=== PATIENT | female | born 1965 | race Caucasian/White ===

== ENCOUNTER 2016-08-30 18:22 | Inpatient (IN) | payer OTHER ==
[2016-08-30] MEDS ORDERED: levETIRAcetam IV* 500 MG in NS 0.9% 100 ML* 100 ML IVPB ONE (18:47)
[2016-08-30 19:00] LABS: Hematocrit 35 % (35-47); Hemoglobin 10.9 g/dl (12.0-16.0); Mean Corpuscular HGB Conc 31 g/dl (31-36); Mean Corpuscular Hemoglobin 27 pg (27-31); Mean Corpuscular Volume 88 fL (80-97); Mean Platelet Volume 7 um3 (7.4-10.4); Red Cell Distribution Width 15 % (10.5-15); White Blood Count 11.6 10^3/ul (3.5-10.8)
[2016-08-30 19:03] LABS: Add Diff/Slide Review? Slide Review Added; Comments Flag Yes
[2016-08-30 19:11] LABS: Albumin 4.2 g/dL (3.2-5.2); BUN/Creatinine Ratio 20.3 (8-20); Calcium 9.2 mg/dL (8.6-10.3); EGFR African American 105.6 (>60); EGFR Non-African American 82.1 (>60); Globulin 3.4 g/dL (2-4); Magnesium 2.3 mg/dL (1.9-2.7); Potassium 3.5 mmol/L (3.5-5.0); Total Bilirubin 0.3 mg/dL (0.2-1.0); Total Protein 7.6 g/dL (6.4-8.9)
[2016-08-30] MEDS ORDERED: LORazepam INJ* 2 MG/ML 1 ML VIAL ONE (20:05)
[2016-08-30] MEDS ORDERED: NS 0.9% 1000 ML* 1,000 ML IV ONE (20:10)
[2016-08-30] MEDS ORDERED: LORazepam INJ* 2 MG/ML 1 ML VIAL IV PUSH ONE (20:11)
[2016-08-30] MEDS ORDERED: Ondansetron INJ* 2 MG/ML VIAL IV PRN (20:35)
[2016-08-30] MEDS ORDERED: Melatonin (NF) 3 MG TAB PO PRN (20:35)
[2016-08-30] MEDS ORDERED: Albuterol 2.5 MG/3 ML NEB.SOL* (0.083%) INH PRN (20:35)
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
--- NOTE | 2016-08-30 20:52 | RAD ---
HISTORY: New onset seizure, history of brain injury COMPARISONS: December 16, 2015 TECHNIQUE: Multiple contiguous axial CT scans were obtained of the head without intravenous contrast. FINDINGS: HEMORRHAGE/INFARCT: There is no hemorrhage or acute infarct. MASSES/SHIFT: There is no mass or shift. EXTRA-AXIAL SPACES: There are no extra-axial fluid collections. SULCI AND VENTRICLES: There is diffuse enlargement of the sulci and ventricles. The degree of ventriculomegaly somewhat disproportionate to the degree of sulcal volume loss. CEREBRUM: There is a chronic lacunar infarct of the right basal ganglia. There is mild hypoattenuation of the periventricular and subcortical white matter. BRAINSTEM: There are no focal parenchymal abnormalities. CEREBELLUM: There are no focal parenchymal abnormalities. VESSELS: The vessels are grossly normal. PARANASAL SINUSES: The paranasal sinuses are clear. ORBITS: The orbits are unremarkable. BONES AND SOFT TISSUE: No bone or soft tissue abnormalities are noted. OTHER: None IMPRESSION: 1. NO ACUTE INTRACRANIAL PATHOLOGY. 2. VENTRICULOMEGALY THAT IS SOMEWHAT DISPROPORTIONATE TO DEGREE OF SULCAL VOLUME LOSS WHICH MAY REFLECT THE PRESENCE OF A COMMUNICATING HYDROCEPHALUS, INCLUDING NORMAL PRESSURE HYDROCEPHALUS. 3. MILD CHRONIC SMALL VESSEL ISCHEMIC CHANGES
[2016-08-30] MEDS ORDERED: levETIRAcetam 500 MG IVPREMIX* 500 MG/100 ML BAG IV ONE (21:00)
[2016-08-30] MEDS ORDERED: Midazolam* 1 MG/ML 2 ML VIAL (2 MG) IV SLOW PU ONE (21:46)
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
[2016-08-30] MEDS: NS 0.9% 1000 ML* 1,000 ML IV SCH (23:49)
[2016-08-31] MEDS: Docusate CAP* 100 MG PO SCH ×3 (00:16→21:37)
[2016-08-31] MEDS: Baclofen TAB* 10 MG PO SCH ×5 (00:16→21:36)
[2016-08-31] MEDS: Sertraline* 50 MG TAB PO SCH ×2 (00:17→21:35)
[2016-08-31] MEDS: tiZANidine TAB* 2 MG PO SCH ×3 (00:19→21:36)
[2016-08-31] MEDS: Acetaminophen TAB* 325 MG PO PRN ×2 (00:25→09:24)
[2016-08-31 00:32] LABS: Urine Bilirubin Negative (Negative); Urine Glucose Negative (Negative); Urine Nitrite Negative (Negative)
[2016-08-31] MEDS: levETIRAcetam 500 MG IVPREMIX* 500 MG/100 ML BAG IV SCH ×3 (04:57→19:49)
[2016-08-31] MEDS: Omeprazole CAP* 20 MG PO SCH (05:07)
[2016-08-31 06:17] LABS: Hematocrit 31 % (35-47); Hemoglobin 10.2 g/dl (12.0-16.0); Mean Corpuscular HGB Conc 33 g/dl (31-36); Mean Corpuscular Hemoglobin 28 pg (27-31); Mean Corpuscular Volume 84 fL (80-97); Mean Platelet Volume 8 um3 (7.4-10.4); Red Cell Distribution Width 15 % (10.5-15); White Blood Count 7.5 10^3/ul (3.5-10.8)
[2016-08-31 06:28] LABS: Calcium 8.9 mg/dL (8.6-10.3); EGFR African American 155.2 (>60); EGFR Non-African American 120.7 (>60); Potassium 4.1 mmol/L (3.5-5.0)
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
[2016-08-31] MEDS: Sertraline* 100 MG TAB PO SCH (09:24)
[2016-08-31] MEDS: NS 0.9% 1000 ML* 1,000 ML IV SCH (10:04)
--- NOTE | 2016-08-31 11:32 | PN ---
Progress Note - Progress Note SOAP: Neurology progress note Date of service: 08/31/16 Subjective: Patient had no further seizure after her 4th one in the ED around 20:30. She is feeling better today overall, but still has spasm in the right foot. Objective: Current Medications Acetaminophen (Tylenol Tab*) 650 mg PO Q6H PRN PRN Reason: FEVER/PAIN Last Admin: 08/31/16 09:24 Dose: 650 mg Albuterol (Ventolin 2.5 Mg/3 Ml Neb.Marleen*) 2.5 mg INH Q2H PRN PRN Reason: SOB/WHEEZING Amantadine HCl (Symmetrel Cap*) 100 mg PO BID MEGAN Baclofen (Lioresal Tab*) 20 mg PO Q6H MEGAN Last Admin: 08/31/16 09:27 Dose: 20 mg Docusate Sodium (Colace Cap*) 200 mg PO BID [facility] Last Admin: 08/31/16 09:24 Dose: 200 mg Levetiracetam (Keppra Iv Premix*) 500 mg in 100 mls @ 400 mls/hr IV Q8H MEGAN Last Admin: 08/31/16 04:57 Dose: 400 mls/hr Sodium Chloride (Ns 0.9% 1000 Ml*) 1,000 mls @ 100 mls/hr IV PER RATE [facility] Last Admin: 08/31/16 10:04 Dose: 100 mls/hr Melatonin (Melatonin (Nf)) 3 mg PO BEDTIME PRN; Protocol PRN Reason: Sleep Omeprazole (Prilosec Cap*) 20 mg PO DAILY@0600 [facility] Last Admin: 08/31/16 05:07 Dose: 20 mg Ondansetron HCl (Zofran Inj*) 4 mg IV Q6H PRN PRN Reason: NAUSEA Last Admin: 08/31/16 00:34 Dose: 4 mg Sertraline HCl (Zoloft*) 50 mg PO BEDTIME [facility] Last Admin: 08/31/16 00:17 Dose: 50 mg Sertraline HCl (Zoloft*) 100 mg PO QAM [facility] Last Admin: 08/31/16 09:24 Dose: 100 mg Tizanidine HCl (Zanaflex Tab*) 2 mg PO QAM [facility] Last Admin: 08/31/16 09:24 Dose: 2 mg Tizanidine HCl (Zanaflex Tab*) 8 mg PO BEDTIME [facility] Last Admin: 08/31/16 00:19 Dose: 8 mg Vital Signs Temp Pulse Resp BP Pulse Ox 98.6 F 65 99 143/61 99 08/31/16 08:00 08/31/16 10:00 08/31/16 10:30 08/31/16 10:00 08/31/16 10:00 Laboratory Results - last 24 hr 08/30/16 08/30/16 08/30/16 18:10 18:10 18:10 WBC 11.6 H RBC 4.00 Hgb 10.9 L Hct 35 MCV 88 MCH 27 MCHC 31 RDW 15 Plt Count 456 H D MPV 7 L Neut % (Auto) 85.1 H Lymph % (Auto) 5.9 L [place] % (Auto) 6.6 Eos % (Auto) 0.1 Baso % (Auto) 2.3 H Absolute Neuts (auto) 9.9 H Absolute Lymphs (auto) 0.7 L Absolute Monos (auto) 0.8 Absolute Eos (auto) 0 Absolute Basos (auto) 0.3 H Absolute Nucleated RBC 0 Nucleated RBC % 0 INR (Anticoag Therapy) 0.99 Sodium 135 Potassium 3.5 Chloride 98 L Carbon Dioxide 14 L* Anion Gap 23 H BUN 15 Creatinine 0.74 Est GFR ( Amer) 105.6 Est GFR (Non-Af Amer) 82.1 BUN/Creatinine Ratio 20.3 H Glucose 113 H POC Glucose (mg/dL) Lactic Acid Calcium 9.2 Magnesium 2.3 Total Bilirubin 0.30 AST 25 ALT 37 Alkaline Phosphatase 121 H Total Protein 7.6 Albumin 4.2 Globulin 3.4 Albumin/Globulin Ratio 1.2 Urine Color Urine Appearance Urine pH Ur Specific [place] Urine Protein Urine Ketones Urine Blood Urine Nitrate Urine Bilirubin Urine Urobilinogen Ur Leukocyte Esterase Urine Glucose 08/30/16 08/31/16 08/31/16 18:10 00:05 00:35 WBC RBC Hgb Hct MCV MCH MCHC RDW Plt Count MPV Neut % (Auto) Lymph % (Auto) [place] % (Auto) Eos % (Auto) Baso % (Auto) Absolute Neuts (auto) Absolute Lymphs (auto) Absolute Monos (auto) Absolute Eos (auto) Absolute Basos (auto) Absolute Nucleated RBC Nucleated RBC % INR (Anticoag Therapy) Sodium Potassium Chloride Carbon Dioxide Anion Gap BUN Creatinine Est GFR ( Amer) Est GFR (Non-Af Amer) BUN/Creatinine Ratio Glucose POC Glucose (mg/dL) Lactic Acid 12.1 H* 1.4 Calcium Magnesium Total Bilirubin AST ALT Alkaline Phosphatase Total Protein Albumin Globulin Albumin/Globulin Ratio Urine Color Straw Urine Appearance Clear Urine pH 7.0 Ur Specific [place] 1.004 L Urine Protein Negative Urine Ketones Negative Urine Blood Negative Urine Nitrate Negative Urine Bilirubin Negative Urine Urobilinogen Negative Ur Leukocyte Esterase Negative Urine Glucose Negative 08/31/16 08/31/16 08/31/16 01:23 05:25 05:25 WBC 7.5 RBC 3.70 L Hgb 10.2 L Hct 31 L MCV 84 MCH 28 MCHC 33 RDW 15 Plt Count 373 MPV 8 Neut % (Auto) Lymph % (Auto) [place] % (Auto) Eos % (Auto) Baso % (Auto) Absolute Neuts (auto) Absolute Lymphs (auto) Absolute Monos (auto) Absolute Eos (auto) Absolute Basos (auto) Absolute Nucleated RBC Nucleated RBC % INR (Anticoag Therapy) Sodium 137 Potassium 4.1 Chloride 105 Carbon Dioxide 27 Anion Gap 5 BUN 9 Creatinine 0.53 Est GFR ( Amer) 155.2 Est GFR (Non-Af Amer) 120.7 BUN/Creatinine Ratio 17.0 Glucose 97 POC Glucose (mg/dL) 133 H Lactic Acid Calcium 8.9 Magnesium Total Bilirubin AST ALT Alkaline Phosphatase Total Protein Albumin Globulin Albumin/Globulin Ratio Urine Color Urine Appearance Urine pH Ur Specific [place] Urine Protein Urine Ketones Urine Blood Urine Nitrate Urine Bilirubin Urine Urobilinogen Ur Leukocyte Esterase Urine Glucose On exam she is awake, alert and oriented. Pupils are still 4 mm and reactive. She is not tachycardic any more. Cranial nerves seem intact. Strength is 5/5 throughout other than the limitation she has with left hip flexor. Sensory exam is intact. I reviewed her EEG and is within the range of normal. Assessment and Plan: 51-year-old female with history of hypoxic injuary about 15 months ago, now presented with a new onset seizure. She does have risk factors for seizure, however seems these seizures have been in the setting of benzo withdrawal, along with other contributing factors such as dehydration and sleep deprivation. Recommend to restart her on a low dose of benzo, preferably short acting similar to what she was on before (Ativan) with gradual taper at least over a few years. Still recommend to stay on antiepilpetic meds (Keppra) for at least 6 months and then reassess again the risk and benefit. Currently in the hospital she is on 500 mg q8h, but can be changed to bid (500 or 750 mg bid) upon discharge. MRI will be obtained in the setting of new onset seizure.
[2016-08-31] MEDS: Amantadine CAP* 100 MG PO SCH ×2 (11:44→21:35)
--- NOTE | 2016-08-31 16:03 | RAD ---
HISTORY: Seizure COMPARISONS: June 08, 2016, CT dated September 11, 2016 TECHNIQUE: The following sequences were obtained of the head: Sagittal T1-weighted images, axial T2-weighted images, axial FLAIR images, axial susceptibility weighted images, axial T1-weighted images, coronal T1, T2 and FLAIR images through the mesial temporal lobes. Additionally, axial diffusion-weighted images were obtained with calculated apparent diffusion coefficients. FINDINGS: HEMORRHAGE/INFARCT: There is no hemorrhage or acute infarct. MASSES/SHIFT: There is no mass or shift. EXTRA-AXIAL SPACES/MENINGES: There are no extra-axial fluid collections. SULCI AND VENTRICLES: There is diffuse and proportional enlargement of the sulci and ventricles. There is ex vacuo dilatation of the temporal horn of the right lateral ventricle. This is stable from the previous examination and appears to account for the ventriculomegaly noted on CT from August 30, 2016 CEREBRUM: There is elevated T2/FLAIR signal within the periventricular white matter, most consistent with. There is right posterior temporal encephalomalacia. The mesial temporal lobes are symmetric. There is no appreciable cortical dysplasia or heterotopia BRAINSTEM: There are no focal parenchymal abnormalities. CEREBELLUM: There are no focal parenchymal abnormalities. The cerebellar tonsils are normal in size and position. SELLA: The sella is normal. PINEAL: The pineal region is clear. CP ANGLE/TEMPORAL BONES: The labyrinthine structures are grossly normal. VESSELS: Normal flow-voids are noted within the visualized vertebral vasculature. DIFFUSION ABNORMALITIES: There are no diffusion abnormalities. PARANASAL SINUSES/MASTOIDS: The paranasal sinuses are clear. ORBITS: The orbits are unremarkable. BONES AND SOFT TISSUE: No bone or soft tissue abnormalities are noted. OTHER: None IMPRESSION: 1. STABLE RIGHT TEMPORAL ENCEPHALOMALACIA WITH EX VACUO DILATATION OF THE RIGHT LATERAL VENTRICLE. 2. THE MESIAL TEMPORAL LOBES ARE SYMMETRIC. THERE IS NO APPRECIABLE CORTICAL DYSPLASIA OR HETEROTOPIA.
[2016-09-01] MEDS: NS 0.9% 1000 ML* 1,000 ML IV SCH (00:49)
[2016-09-01] MEDS: Baclofen TAB* 10 MG PO SCH ×4 (03:58→22:35)
[2016-09-01] MEDS: levETIRAcetam 500 MG IVPREMIX* 500 MG/100 ML BAG IV SCH ×2 (03:58→12:05)
--- NOTE | 2016-09-01 04:31 | EEG ---
CC: Dr. Abdoul Perez ELECTROENCEPHALOGRAPHY REPORT: DATE OF STUDY: 08/31/16 REQUESTING PHYSICIAN: Dr. Manzo. REASON FOR REQUEST: New onset seizure. BRIEF HISTORY: The patient is a 51-year-old female with a history of anoxic brain injury in October 2014 and a resultant muscle spasm, who presented to the hospital with new onset seizure that happened 4 times within a span of about 3 hours, with return to the baseline in between. TECHNICAL DESCRIPTION: This digital EEG was recorded using 21 scalp and ear, and 2 EKG electrodes. It was reviewed in referential and bipolar montages following reformatting in the 10-20 international electrode placement system. In the most awake and alert state, the posterior dominant rhythm consists of 20- 40 microvolts, 10-11 Hz posterior dominant rhythm that reacts to eye opening. Faster frequencies including a 5-10 Hz, 18-22 Hz activities seen in the frontal leads. During drowsiness, there is increased emergence of theta and delta rhythms in a generalized distribution; however, no full sleep was achieved during this study. IMPRESSION: This digital EEG in the awake and drowsy states is within the range of normal variation. COMMENT: Lack of epileptiform discharges does not necessarily exclude the clinical diagnosis of epilepsy. [id number]/[facility] #: [id number] [facility] HOSPITALMauro
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
[2016-09-01] MEDS: Omeprazole CAP* 20 MG PO SCH (08:16)
[2016-09-01] MEDS ORDERED: Albuterol HFA INHALER* 8 gm MDI INH PRN (08:56)
[2016-09-01] MEDS: Sertraline* 100 MG TAB PO SCH (09:46)
[2016-09-01] MEDS: Amantadine CAP* 100 MG PO SCH ×2 (09:46→22:34)
[2016-09-01] MEDS: tiZANidine TAB* 2 MG PO SCH ×2 (09:47→22:34)
[2016-09-01] MEDS: Docusate CAP* 100 MG PO SCH ×3 (11:58→22:37)
[2016-09-01] MEDS: clonazePAM TAB(*) 0.5 MG PO SCH (22:33)
[2016-09-01] MEDS: Sertraline* 50 MG TAB PO SCH (22:35)
[2016-09-02] MEDS: levETIRAcetam 500 MG IVPREMIX* 500 MG/100 ML BAG IV SCH (00:03)
[2016-09-02] MEDS: Baclofen TAB* 10 MG PO SCH ×2 (04:28→08:35)
[2016-09-02] MEDS: Omeprazole CAP* 20 MG PO SCH (06:15)
[2016-09-02] MEDS ORDERED: levETIRAcetam 500 MG IVPREMIX* 500 MG/100 ML BAG IV SCH (08:00)
[2016-09-02] MEDS: clonazePAM TAB(*) 0.5 MG PO SCH (08:35)
[2016-09-02] MEDS: Sertraline* 100 MG TAB PO SCH (08:35)
[2016-09-02] MEDS: tiZANidine TAB* 2 MG PO SCH (08:35)
[2016-09-02] MEDS: Docusate CAP* 100 MG PO SCH (08:38)
[2016-09-02] MEDS: Amantadine CAP* 100 MG PO SCH (08:39)
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
[2016-09-02] MEDS ORDERED: levETIRAcetam TAB* 500 MG PO ONE (09:00)
[2016-09-02 11:06] VITALS: BP 115/70
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
== END 2016-09-02 12:00 | disposition home or self-care (01) | DRG 101 ==
LOC: ED 18:22 → MEDTELE 20:33 → ICU 23:08 → MED 09-01 08:00
PROVIDERS: ADMIT Hospitalist; ATTEND Internal Medicine
PROC: 4A00X4Z Measurement of Central Nervous Electrical Activity, External Approach (ICD-10-PCS; principal; 2016-08-31)
DX: G40.409 Other generalized epilepsy and epileptic syndromes, not intractable, without status epilepticus (principal); G93.1 Anoxic brain damage, not elsewhere classified; G20 Parkinson's disease; F07.81 Postconcussional syndrome; S06.9X9S Unspecified intracranial injury with loss of consciousness of unspecified duration, sequela; F13.239 Sedative, hypnotic or anxiolytic dependence with withdrawal, unspecified; J45.909 Unspecified asthma, uncomplicated; M13.872 Other specified arthritis, left ankle and foot; M13.862 Other specified arthritis, left knee; M13.861 Other specified arthritis, right knee; F41.9 Anxiety disorder, unspecified; F41.1 Generalized anxiety disorder; B00.1 Herpesviral vesicular dermatitis; F02.80 Dementia in other diseases classified elsewhere, unspecified severity, without behavioral disturbance, psychotic disturbance, mood disturbance, and anxiety; R32 Unspecified urinary incontinence; M62.838 Other muscle spasm; R09.02 Hypoxemia; Z96.642 Presence of left artificial hip joint; Z91.040 Latex allergy status; Z88.8 Allergy status to other drugs, medicaments and biological substances; Z87.820 Personal history of traumatic brain injury; Z87.828 Personal history of other (healed) physical injury and trauma; Z83.3 Family history of diabetes mellitus; Z79.82 Long term (current) use of aspirin
CPT/HCPCS: 36415; 70450; 70551; 80048; 80053; 81003; 83605; 83735; 85025; 85027; 85610; 87641; 93005; 94760; 94762; 95819; A9270-GY; J2060; J2405

== ENCOUNTER 2017-11-05 16:16 | Emergency (ER) | payer OTHER ==
[2017-11-05 17:44] LABS: ABS Basophils 0 10^3/ul (0-0.2); ABS Eosinophils 0 10^3/ul (0-0.6); ABS Lymphocytes 0.7 10^3/ul (1.0-4.8); ABS Monocytes 0.4 10^3/ul (0-0.8); ABS Neutrophils 4.8 10^3/ul (1.5-7.7); ABS Nucleated RBC 0 10^3/ul; Eosinophil % 0.4 % (0-6); Hematocrit 37 % (35-47); Hemoglobin 12.7 g/dl (12.0-16.0); Lymphocyte % 12.1 % (25-47); Mean Corpuscular HGB Conc 35 g/dl (31-36); Mean Corpuscular Hemoglobin 29 pg (27-31); Mean Corpuscular Volume 84 fL (80-97); Mean Platelet Volume 7 um3 (7.4-10.4); Nucleated Red Blood Cells % 0; Platelet Count 230 10^3/ul (150-450); Red Blood Count 4.33 10^6/ul (4.0-5.4); Red Cell Distribution Width 13 % (10.5-15); White Blood Count 5.9 10^3/ul (3.5-10.8)
[2017-11-05 18:02] LABS: EGFR Non-African American 134.8 (>60)
[2017-11-05 18:03] LABS: INR 0.9 (0.77-1.02)
--- NOTE | 2017-11-05 18:34 | RAD ---
INDICATION: Postop foot surgery September 10, 2017. LEFT leg pain and edema. COMPARISON: No relevant prior exams available on the [facility] for comparison. TECHNIQUE: Sanchez scale, color Doppler, and spectral analysis of the deep veins of the LEFT lower extremity. Vessel compression, phasicity, and augmentation assessed. REPORT: The LEFT common femoral, great saphenous, profunda femoral, femoral, popliteal, peroneal, and posterior tibial veins are patent. Severe subcutaneous edema at the LEFT lower leg. Patency of the RIGHT common femoral vein documented. IMPRESSION: No evidence for LEFT lower extremity deep venous thrombosis.
[2017-11-05 20:09] VITALS: BP 152/79
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
== END 2017-11-05 20:09 | disposition home or self-care (01) ==
LOC: ED 16:16
DX: M79.605 Pain in left leg (principal); Z98.890 Other specified postprocedural states; E87.1 Hypo-osmolality and hyponatremia; K21.9 Gastro-esophageal reflux disease without esophagitis; Z86.74 Personal history of sudden cardiac arrest; J45.909 Unspecified asthma, uncomplicated; F41.9 Anxiety disorder, unspecified
CPT/HCPCS: 36415; 80053; 83605; 83735; 85025; 85610; 85652; 86140; 99282

== ENCOUNTER 2017-12-04 14:41 | Emergency (ER) | payer OTHER ==
[2017-12-04 17:17] LABS: EGFR Non-African American 108.3 (>60)
--- NOTE | 2017-12-04 17:31 | RAD ---
HISTORY: Right upper thigh pain TECHNIQUE: Multiple transverse and longitudinal ultrasound images were obtained of the veins of the right lower extremity using grayscale, color Doppler, and spectral Doppler imaging with and without compression and with augmentation. FINDINGS: VEINS: The common femoral vein, deep femoral vein, femoral vein and popliteal vein are compressible throughout their course, with normal flow on color Doppler imaging and normal response to augmentation on spectral Doppler imaging. SOFT TISSUES: Grossly normal. No large popliteal fossa cyst was identified. IMPRESSION: No sonographic evidence of deep vein thrombosis.
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
[2017-12-04 19:43] VITALS: BP 121/65
== END 2017-12-04 19:40 | disposition home or self-care (01) ==
LOC: ED 14:41
DX: M79.651 Pain in right thigh (principal); E87.1 Hypo-osmolality and hyponatremia; M79.89 Other specified soft tissue disorders; R39.198 Other difficulties with micturition; R11.10 Vomiting, unspecified; Z79.82 Long term (current) use of aspirin; D64.9 Anemia, unspecified; J45.909 Unspecified asthma, uncomplicated; K21.9 Gastro-esophageal reflux disease without esophagitis; F41.9 Anxiety disorder, unspecified; Z96.642 Presence of left artificial hip joint
CPT/HCPCS: 36415; 80048; 83735; 99282

== ENCOUNTER 2018-01-18 13:32 | Emergency (ER) | payer OTHER ==
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
[2018-01-18 15:57] VITALS: BP 150/90
== END 2018-01-18 15:55 | disposition home or self-care (01) ==
LOC: UCEAST 13:32
DX: M79.672 Pain in left foot (principal); S05.11XA Contusion of eyeball and orbital tissues, right eye, initial encounter; W18.30XA Fall on same level, unspecified, initial encounter; Y93.89 Activity, other specified; Y92.9 Unspecified place or not applicable; I10 Essential (primary) hypertension; Z96.642 Presence of left artificial hip joint; Z80.3 Family history of malignant neoplasm of breast
CPT/HCPCS: 99211; G0463

== ENCOUNTER 2018-02-25 03:18 | Emergency (ER) | payer OTHER ==
[2018-02-25] MEDS ORDERED: Tetan/Diph/Pertus SYR(Tdap)* 0.5 ML SYR(BOOSTRIX) use SYR IM ONE (03:36)
[2018-02-25] MEDS ORDERED: Lidocaine 2% EPI 1:200000 MPF*10-20 ML VIAL ONE (03:44)
[2018-02-25 04:48] VITALS: BP 152/81
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
== END 2018-02-25 04:47 | disposition home or self-care (01) ==
LOC: ED 03:18
DX: S01.81XA Laceration without foreign body of other part of head, initial encounter (principal); W19.XXXA Unspecified fall, initial encounter; Y93.89 Activity, other specified; Y92.9 Unspecified place or not applicable; Z23 Encounter for immunization; G93.1 Anoxic brain damage, not elsewhere classified; Z86.74 Personal history of sudden cardiac arrest
CPT/HCPCS: 12011; 70450; 90471; 90715; 99282

== ENCOUNTER 2024-02-15 15:49 | Observation (INO) ==
[2024-02-15] MEDS: Lactated Ringers 1000 ml BAG 1,000 ML IV ONE ×2 (16:35→16:50)
[2024-02-15 17:13] LABS: ABS Eosinophils 0.1 10^3/uL (0.0-0.5); ABS Lymphocytes 0.9 10^3/uL (1.0-4.8); ABS Monocytes 0.6 10^3/uL (0.0-0.9); ABS Neutrophils 6.8 10^3/uL (1.5-7.6); Eosinophil % 1.7 %; Hematocrit 24.9 % (35-45); Hemoglobin 8.7 g/dL (11.5-14.3); Lymphocyte % 10.6 %; Mean Corpuscular Hemoglobin 31.1 pg (27-33); Mean Corpuscular Hgb Conc 34.8 g/dL (31-36); Mean Corpuscular Volume 89.2 fL (80-97); Mean Platelet Volume 7.8 fL (7.5-11.2); Platelet Count 268 10^3/uL (150-450); Red Blood Count 2.79 10^6/uL (3.63-4.92); Red Cell Distribution Width 13.1 % (12-17); White Blood Count 8.5 10^3/uL (3.8-11.8)
[2024-02-15 17:22] LABS: INR 0.91 (0.83-1.13)
[2024-02-15 17:39] LABS: High Sens Troponin Baseline 3 pg/mL (<15)
[2024-02-15 17:41] LABS: Urine Appearance Clear; Urine Bilirubin Negative (Negative); Urine Blood Negative (Negative); Urine Color Light-Yellow; Urine Glucose Negative (Negative); Urine Ketones Negative (Negative); Urine Nitrite Negative (Negative); Urine Protein Negative (Negative); Urine Specific Gravity 1.006 (1.002-1.030); Urine Urobilinogen Negative (Negative)
[2024-02-15 17:42] LABS: ALT 19 U/L (7-52); Albumin 3.4 g/dL (3.2-5.2); Albumin/Globulin Ratio 1.4 (1-3); Alkaline Phosphatase 72 U/L (35-149); Blood Urea Nitrogen 13 mg/dL (6-24); C Reactive Protein 266.35 mg/L (<8.01); CO2 Carbon Dioxide 29 mmol/L (22-32); Calcium 8.4 mg/dL (8.6-10.3); Chloride 97 mmol/L (101-111); Creatinine, Serum 0.54 mg/dL (0.51-0.95); Globulin 2.4 g/dL (2-4); Glucose 112 mg/dL (70-100); Sodium 133 mmol/L (135-145); Total Bilirubin 0.4 mg/dL (0.2-1.0); Total Protein 5.8 g/dL (6.4-8.9); eGFR CKD-EPI 104.7 (>60)
[2024-02-15 17:44] LABS: Anion Gap 7 mmol/L (2-16)
[2024-02-15 18:17] LABS: High Sensitivity Troponin 1 Hr 4 pg/mL (<15)
[2024-02-15 21:40] LABS: Hematocrit 25.8 % (35-45); Hemoglobin 8.9 g/dL (11.5-14.3)
[2024-02-15 22:19] LABS: Potassium Redraw 4.3 mmol/L (3.5-5.0)
[2024-02-16] MEDS ORDERED: Dextran 70/Hypromellose Tears Eye Drops 15 ml BTL (for Artificials Tears) BOTH EYES PRN (00:38)
[2024-02-16] MEDS ORDERED: Oral Rinse (Biotene)(NF) 237 ML or 473 ML ORAL RINSE BTL MT PRN (00:42)
[2024-02-16] MEDS: DULoxetine DR 20 mg CAP PO SCH (00:48)
[2024-02-16] MEDS ORDERED: Senna TAB 8.6 mg TAB PO PRN (00:51)
[2024-02-16] MEDS ORDERED: Ondansetron 4 mg VIAL 2 MG/ML 2 ml VIAL IV PRN (00:51)
[2024-02-16] MEDS ORDERED: Polyethylene Glycol 3350 17 GM PACKET PO PRN (02:38)
[2024-02-16] MEDS: Erythromycin OPTH OINT APPLIC OINT RIGHT EYE SCH (03:08)
[2024-02-16 06:30] LABS: ABS Eosinophils 0.1 10^3/uL (0.0-0.5); ABS Lymphocytes 0.7 10^3/uL (1.0-4.8); ABS Monocytes 0.7 10^3/uL (0.0-0.9); ABS Neutrophils 6.5 10^3/uL (1.5-7.6); Eosinophil % 1.7 %; Hematocrit 25.6 % (35-45); Hemoglobin 9.1 g/dL (11.5-14.3); Mean Corpuscular Hemoglobin 31.4 pg (27-33); Mean Corpuscular Hgb Conc 35.5 g/dL (31-36); Mean Corpuscular Volume 88.4 fL (80-97); Mean Platelet Volume 6.9 fL (7.5-11.2); Platelet Count 280 10^3/uL (150-450); Red Blood Count 2.89 10^6/uL (3.63-4.92); White Blood Count 8.1 10^3/uL (3.8-11.8)
[2024-02-16 07:17] LABS: Anion Gap 8 mmol/L (2-16); Blood Urea Nitrogen 6 mg/dL (6-24); CO2 Carbon Dioxide 30 mmol/L (22-32); Calcium 8.6 mg/dL (8.6-10.3); Chloride 99 mmol/L (101-111); Creatinine, Serum 0.44 mg/dL (0.51-0.95); Glucose 100 mg/dL (70-100); Potassium 3.9 mmol/L (3.5-5.0); Sodium 137 mmol/L (135-145)
[2024-02-16] MEDS: Iohexol 350 (CONTRAST) 500 ML MDV IV ONE ×2 (08:23→08:25)
[2024-02-16 09:04] LABS: Ferritin 130.9 ng/mL (11-307)
[2024-02-16] MEDS: Cholecalciferol (VIT D3) 1,000 unit TAB PO SCH (09:09)
[2024-02-16 09:18] LABS: % Iron Saturation 9 % (15-55); .Transferrin 166 mg/dL (203-362); Iron < 20 ug/dL (50-212); Total Iron Binding Capacity 232 mcg/dL (250-450); Unsaturated Iron Binding 212 ug/dL
[2024-02-16] MEDS: Lactated Ringers 1000 ml BAG 1,000 ML IV SCH (11:02)
[2024-02-16 14:31] VITALS: BP 125/81
== END 2024-02-16 15:00 | disposition home or self-care (01) ==
LOC: EDHOLD 15:49 → ED 15:49 → MEDTELE 02-16 10:03
PROVIDERS: ADMIT Hospitalist; ATTEND Hospitalist